=== PATIENT | male | born 1975 | race Two or more races ===

== ENCOUNTER → 2016-11-24 | Emergency (ER) | payer BC ==
[~2016-11-24] VITALS: Ht 177.8 cm; Wt 72.6 kg
[~2016-11-24] MED LIST: HYDROCODONE/APAP 5/325MG 1 EACH TABLET ONE; HYDROCODONE/APAP 5/325MG 1 EACH TABLET PO ONE
[2016-11-24 15:35] VITALS: BP 115/69
== END | disposition home or self-care (01) ==
LOC: ER 15:36
DX: S99.911A Unspecified injury of right ankle, initial encounter (principal); X58.XXXA Exposure to other specified factors, initial encounter; Y93.65 Activity, lacrosse and field hockey; Y92.89 Other specified places as the place of occurrence of the external cause; Y99.9 Unspecified external cause status
CPT/HCPCS: 29515; 73610; 99284; A4606; Z7610

== ENCOUNTER 2018-12-30 10:16 | Emergency (ER) | payer SELFPAY ==
[~2018-12-30] VITALS: Ht 172.7 cm; Wt 71.2 kg
--- NOTE | 2018-12-30 10:20 | NUR ---
BIB SELF W C/O NON-HEALING WOUND ON SURGICAL SITE (ON/OFF ON R ANKLE, STARTED ABOUT A YEAR AGO), WAS SEEN IN [facility], SAW PMD TODAY AND WAS TOLD TO COME IN. ALSO C/O GENERALIZED BODY RASH STARTED YESTERDAY. TO ER BED10 , HOOKED TO MONITOR, CHANGED TO GOWN, PROVIDED W WARM BLANKET, AWAITING MD HOOVER.
--- NOTE | 2018-12-30 10:39 | NUR ---
DR RODNEY AT BEDSIDE
[2018-12-30] MEDS ORDERED: methylPREDNISolone SOD SUCC 125 MG/2ML VIAL ONE (10:48)
[2018-12-30] MEDS ORDERED: diphenhydrAMINE HCL 50 MG/ML VIAL ONE (10:48)
[2018-12-30] MEDS ORDERED: FAMOTIDINE/PF INJ 20 MG/2 ML VIAL IV ONE ×2 (10:49→11:00)
[2018-12-30 10:57] LABS: BASOPHILS % (AUTO) 0.7 % (0.0-2.0); EOSINOPHILS % (AUTO) 3.5 % (0.0-6.0); HEMATOCRIT 43 % (39-51); HEMOGLOBIN 14.5 g/dL (13.5-17.5); LYMPHOCYTES # (AUTO) 0.3 /CMM (0.8-4.8); LYMPHOCYTES % (AUTO) 5.2 % (20.0-44.0); MEAN CORPUSCULAR HGB CONC 34 g/dl (31.0-36.0); MEAN CORPUSCULAR VOLUME 87 fL (80-96); MONOCYTES # (AUTO) 0.3 /CMM (0.1-1.30); MONOCYTES % (AUTO) 5.1 % (2.0-12.0); NEUTROPHILS # (AUTO) 4.8 /CMM (1.8-8.9); NEUTROPHILS % (AUTO) 85.5 % (43.0-81.0); PLATELET COUNT (AUTO) 185 /CMM (150-450); RED BLOOD CELL COUNT(AUTO) 4.95 MIL/uL (4.5-6.0); WHITE BLOOD COUNT (AUTO) 5.6 K/uL (4.3-11.0)
[2018-12-30] MEDS ORDERED: diphenhydrAMINE HCL 50 MG/ML VIAL IV ONE (11:00)
[2018-12-30] MEDS ORDERED: IV NS 0.9% 1,000 ML BAG IV ONE ×2 (11:00→12:30)
[2018-12-30] MEDS ORDERED: methylPREDNISolone SOD SUCC 125 MG/2ML VIAL IV ONE (11:00)
[2018-12-30 11:03] LABS: CALCIUM, SERUM 9.2 mg/dL (8.5-10.1); CARBON DIOXIDE 25 mmol/L (21-32); CHLORIDE 100 mmol/L (98-107); CREATININE 1.8 mg/dL (0.6-1.3); GLUCOSE 97 mg/dL (74-106); POTASSIUM 4.5 mmol/L (3.5-5.1); SODIUM SERUM 136 mmol/L (136-145); UREA NITROGEN, BLOOD 30 mg/dL (7-18)
[2018-12-30 11:09] LABS: ALANINE AMINOTRANSFERASE 154 U/L (12-78); ALBUMIN 3.9 g/dL (3.4-5.0); ALKALINE PHOSPHATASE 141 U/L (46-116); ASPARTATE AMINOTRANSFERASE 126 U/L (15-37); BILIRUBIN,DIRECT 0.2 mg/dL (0.0-0.2); BILIRUBIN,TOTAL 0.5 mg/dL (0.2-1.0); TOTAL PROTEIN, SERUM 8.1 g/dL (6.4-8.2)
--- NOTE | 2018-12-30 11:10 | NUR ---
SYSTEMS NAVIGATOR AT BEDSIDE
[2018-12-30] MEDS ORDERED: HYDROCODONE/APAP 10/325MG 1 EA TABLET ONE (11:21)
--- NOTE | 2018-12-30 11:28 | NUR ---
PT REFUSED NORCO 10-325. NOTIFIED AND RECEIVED VERBAL ORDER TO GIVE TYLENOL 1000MG X 1 NOW. ORDER CARRIED OUT
[2018-12-30] MEDS ORDERED: ACETAMINOPHEN ES 500 MG TABLET ONE (11:29)
[2018-12-30] MEDS ORDERED: ACETAMINOPHEN ES 500 MG TABLET PO ONE (11:30)
[2018-12-30] MEDS ORDERED: HYDROCODONE/APAP 10/325MG 1 EA TABLET PO ONE (11:30)
--- NOTE | 2018-12-30 11:33 | NUR ---
PT RECEIVED TYLENOL 100MG PO X 1. CO PAIN ON R MEDIAL ANKLE 8/10, THROBBING AND PULSATING.
[2018-12-30] MEDS ORDERED: EPINEPHRINE (1:1000) 1 MG/ML AMPUL ONE (11:50)
[2018-12-30] MEDS ORDERED: EPINEPHRINE (1:1000) MDV 30 MG/30ML VIAL SUBCUT ONE (12:00)
[2018-12-30] MEDS ORDERED: VANCOMYCIN 1 GM in IV D5W 250 ML IV ONE (12:30)
--- NOTE | 2018-12-30 12:41 | NUR ---
GALDINO KWAN) ON-CALL ORTHO @[phone]
[2018-12-30] MEDS ORDERED: SULF1TAB3 PO (12:45)
[2018-12-30] MEDS ORDERED: AMOX1TAB16 PO (12:45)
--- NOTE | 2018-12-30 15:00 | NUR ---
IV removed. Catheter intact and site benign. Pressure and 4x4 applied to site. No bleeding noted.Patient discharged to home in stable condition. Written and verbal after care instructions given. Patient verbalizes understanding of instruction.
[2018-12-30 15:26] VITALS: BP 116/71
== END 2018-12-30 15:05 | disposition home or self-care (01) ==
LOC: ER 10:18
DX: T50.905A Adverse effect of unspecified drugs, medicaments and biological substances, initial encounter (principal); L03.115 Cellulitis of right lower limb; L97.319 Non-pressure chronic ulcer of right ankle with unspecified severity; N28.9 Disorder of kidney and ureter, unspecified; E86.0 Dehydration; Y92.89 Other specified places as the place of occurrence of the external cause
CPT/HCPCS: 36415; 71045; 73610; 80048; 80076; 83605; 84484; 85025; 85652; 85730; 86140; 87040 ×2; 87804 ×2; 93005; 96361; 96365; 96372; 96375; 99284; J0171 ×2; J1200; J2930; J3370; J3490; J7030 ×2; J7060; 87400

== ENCOUNTER 2019-09-06 06:35 | Day surgery (SDC) | payer BC ==
[~2019-09-06 06:35] MED LIST changes: +AMOX1TAB16 PO; -HYDROCODONE/APAP 5/325MG 1 EACH TABLET ONE; -HYDROCODONE/APAP 5/325MG 1 EACH TABLET PO ONE; +SULF1TAB3 PO
[2019-09-06 07:55] LABS: CALCIUM, SERUM 8.8 mg/dL (8.5-10.1); CREATININE 1.1 mg/dL (0.6-1.3); POTASSIUM 3.4 mmol/L (3.5-5.1)
[2019-09-06 08:09] LABS: ALBUMIN 3.9 g/dL (3.4-5.0); BILIRUBIN,TOTAL 0.4 mg/dL (0.2-1.0); TOTAL PROTEIN, SERUM 7.9 g/dL (6.4-8.2)
[2019-09-06] MEDS ORDERED: BUPIVACAINE 0.5 % PF 150 MG/30 ML VIAL ONE (09:13)
[2019-09-06] MEDS ORDERED: BACITRACIN 50000 UNITS/VIAL ONE (09:16)
[2019-09-06] MEDS ORDERED: MIDAZOLAM HCL 2 MG/2ML VIAL ONE (09:35)
[2019-09-06] MEDS ORDERED: CLINDAMYCIN 900 MG/6 ML VIAL ONE (09:39)
[2019-09-06] MEDS ORDERED: HYDROMORPHONE INJ 2 MG/ML DISP.SYRIN ONE (10:13)
[2019-09-06] MEDS ORDERED: MEPERIDINE HCL/PF 100 MG/ML DISP.SYRIN ONE (10:46)
[2019-09-06] MEDS ORDERED: FENTANYL PF 100MCG/2ML AMPUL ONE (11:01)
[2019-09-06] MEDS ORDERED: oxyCODONE/APAP (5/325 MG) 1 UDTAB TABLET ONE (11:19)
[2019-09-06] MEDS ORDERED: ONDANSETRON HCL/PF 4 MG/2 ML VIAL ONE (12:04)
== END 2019-09-06 12:35 | disposition home or self-care (01) ==
LOC: DS 06:35
PROVIDERS: ATTEND Student in an Organized Health Care Education/Training Program
DX: T84.59XA Infection and inflammatory reaction due to other internal joint prosthesis, initial encounter (principal); Y79.3 Surgical instruments, materials and orthopedic devices (including sutures) associated with adverse incidents
CPT/HCPCS: 27603; 36415; 80053; 87070 ×3; 88304; 88305; 88311; A4217; A6253; A6402; J1100; J1170; J1885; J2175; J2250; J2405 ×2; J2704; J3010; J3490 ×2